=== PATIENT | female | born 1975 | race Two or more races ===

== ENCOUNTER → 2017-02-10 | Outpatient (CLI) | payer OTHER ==
--- NOTE | ~2017-02-10 | NM86 ---
[facility] A Service of [facility] & [facility] RADIOLOGY TEXT RESULTS PATIENT: YANNICK YANEZ LOCATION: [facility] : 75 UNIT #: [id number] AGE: [address]: Wong Zhang MD SEX: F ORDER DR: [id number] [facility] [address] [place], [place] [address] [id number] O MR#: [id number] Acc #: [id number] NAME: YANNICK YANEZ : 1975 SEX: F STUDY DATE/TIME: 02/10/2017 7:15 UNIT: [facility] ROOM: STUDY DESCRIPTION: NM Thyroid Img W Uptake Attending Physician: Wong Zhang M.D. Referring Physician: Wong Zhang M.D. Ordering Physician: Wong Zhang M.D. Primary Care Physician: Isabelle Mathur A.P.R.N. MEDICAL IMAGING REPORT This report is preliminary unless electronic signature is present EXAM Thyroid uptake and scan INDICATIONS Abnormal thyroid function tests, fatigue, sleepless, difficulty swallowing, mood swings, symptoms for two years. The patient given 158.1 microcuries of I-123 and 24 hours later the uptake had measured 22%. Images of the gland appear normal. IMPRESSION Normal thyroid uptake and scan Dictated by... Rock Cole M.D. THIS IS AN ELECTRONICALLY VERIFIED REPORT Rock Cole M.D. at 02/10/2017 4:22 PM SUMA/pilar TD: 02/10/2017 14:41 JOB #: [id number] MEDICAL IMAGING REPORT Page 1 of 1 COPY
== END | disposition home or self-care (01) ==
LOC: CNUC 06:50
DX: R94.6 Abnormal results of thyroid function studies (principal)
CPT/HCPCS: 78014; A9516